=== PATIENT | female | born 1990 | race Caucasian/White ===

== ENCOUNTER 2017-10-20 22:02 | Observation (INO) | payer OTHER, SELFPAY ==
[2017-10-20 21:54] VITALS: BMI 22.8
[2017-10-20] MEDS: Lactated Ringers 1,000 ML 50 ML IV (22:45)
[2017-10-20 23:13] LABS: Hematocrit 38.1 % (37-47); Hemoglobin 13.4 g/dl (12.0-15.0); Mean Corp Hgb Conc 35.2 g/gl (32-36); Mean Corpuscular Hgb 33.7 pg (27.0-32.0); Mean Corpuscular Volume 95.7 fL (81-99); Mean Platelet Vol. 10.7 fl (6.2-12.0); Platelet Count 213 K/mm3 (150-450); RBC Distribution Width CV 13.6 % (11.6-14.6); Red Blood Count 3.98 M/mm3 (4.2-5.4); Scan Indicated on CBC? Y/N NO; White Blood Count 12.5 K/mm3 (4.4-11.0)
[2017-10-20 23:17] LABS: Partial Thromboplast Time 27.2 Seconds (24.1-36.2)
--- NOTE | 2017-10-21 00:09 | PCM.HP.OB ---
(1) labor in second trimester Status: Acute Qualifiers: Fetus number: single or unspecified fetus History Date of Admission: 10/20/17 Gestational age: 19 History of this : 27 year old at 21w3d by LMP, confirmed by 15 week and 19 week U/S, within one day. Presented to office on 10/20/17 with increased vaginal discharge in toilet, no leakage of fluid. No further discharge throughout the day. Then had slight pelvic cramping and round ligament pain but nothing time able or consistent. Lessened after the morning. No vaginal bleeding or contractions. Around 1800 patient stated that pelvic pressure and pain returned and increased about of vaginal discharge that was not stopping, no leakage of fluid. Patient performed her own vaginal exam and noted something in the vagina and that she thought her cervix was dilated. She presented on the unit with her mother. Complaint of continued cramping and wrapping around to her back. Pertinent Past Medical History: History of spontaneous with D&C at 11 weeks Subchorionic hematoma at 15weeks, resolved at 19 weeks Allergies No Known Allergies Allergy (Verified 10/20/17 22:25) Current Medications Acetaminophen (Tylenol) 325 - 650 mg PO Q4H PRN PRN PRN Reason: PAIN OR FEVER >100.4F Al Hydroxide/Mg Hydroxide (Mylanta Ii) 15 - 30 ml PO Q4H PRN PRN PRN Reason: INDIGESTION Citric Acid/Sodium Citrate (Bicitra) 30 ml PO UD PRN Lactated Ringer's () 1,000 mls @ 50 mls/hr IV .Q20H MARIBEL Nalbuphine HCl (Nubain) 5 - 10 mg IV Q3H PRN PRN PRN Reason: PAIN (4-10/10) Ondansetron HCl (Zofran) 4 mg IV Q8H PRN PRN PRN Reason: NAUSEA Promethazine HCl (Phenergan (Ll)) 6.25 - 12.5 mg IV Q4H PRN PRN; Protocol PRN Reason: IF NAUSEA PERSISTS Sodium Chloride () 5 - 15 ml IV UD [facility] Smoking Status: Never smoker Alcohol: None Drug Use: none Number of Fetus(es): 1 Review of Systems Constitutional: Denies: Chills, Fever, Weight Change HEENT: Denies: Head Aches, Sinus Congestion, Sinus Drainage Cardiovascular: Denies: Chest Pain, Palpitations Respiratory: Denies: Cough, Shortness of breath at rest, Sputum production Gastrointestinal: Reports: Abdominal Pain Genitourinary: Denies: Dysuria, Frequency, Hematuria, Urgency Physical Exam Vitals: RPR negative HIV negative Rubella Immune HBsAG negative GC/CT negative O positive, antibody screen negative Anatomy U/S at 19w6d, -1d variation. Anatomy wnl, 3 vessel cord, anterior fundal placenta, cervical length 35.9mm, EFW 53rd%, 326g General: Alert, Oriented x3, No apparent distress Cardiovascular: Regular rate, Regular Rhythm, Normal S1, Normal S2, No murmurs Lungs: Clear to auscultation, No rhonchi, No wheeze Abdomen: Bowel Sounds Present, Soft, Gravid, Tender Extremities:: No edema Presentation: Unable to assess Cervix Dilation (cm): 3 - BBOW in vagina. Performed SSE and able to visualized bag of water in vagina. Station: -3 Assessment/Plan Active and Suspected Problems labor in second trimester (Acute) FHT 140, uterine irritability A:27 year old at 21w3d by LMP in Labor P: 1) Consulted regarding previable premature labor, expectant management at this time. Orders given for admission to L&D. 2) Pain management at patient's request 3) Consulted regarding patient in labor and living previable fetus. She consulte neonatology at [facility]. No further recommendations and no resuscitation efforts after delivery due to gestational age. 4) Reviewed plan of care with patient and , and expectant management at this time. Emotional support provided. Barbi Griffin CNM
[2017-10-21] MEDS: Acetaminophen 325 MG Tablet PO ×2 (00:20→05:51)
--- NOTE | 2017-10-21 08:13 | PCM.PN.OB ---
Patient Problems: Active and Suspected Problems labor in second trimester (Acute) Subjective: Patient rested throughout the night. at bedside. Pelvic cramping remains, patient thought it had worsened but feels now it is about the same. Admits that she has a little burning with urination. Objective: Coping well. - Physical Exam Weight: 129 lb Body Mass Index (BMI) 22.8 Intake and Output for Last 24 Hours 10/19/17 10/20/17 10/21/17 23:59 23:59 23:59 Output Total 400 / 400 Balance -400 / -400 Laboratory Tests Past 24 Hrs 10/20/17 10/20/17 10/20/17 22:48 22:48 22:48 WBC 12.5 H RBC 3.98 L Hgb 13.4 Hct 38.1 MCV 95.7 MCH 33.7 H MCHC 35.2 RDW 13.6 RDW Differential 47.0 H Plt Count 213 MPV 10.7 PT 13.0 INR 1.0 APTT 27.2 Blood Type O POSITIVE Antibody Screen NEGATIVE Assessment/Plan Active and Suspected Problems labor in second trimester (Acute) A: Labor P: 1) Called at 0700 for an update. Updated on patient current condition, pain remains the same and not worsened, and no repeat cervical evaluation. Coming in for evaluation of patient. Co-management of patient continues and then refer for management when arrives.
--- NOTE | 2017-10-21 08:27 | PN.OBGYN_ITS ---
Patient Problems: Active and Suspected Problems labor in second trimester (Acute) Subjective: Patient rested throughout the night. at bedside. Pelvic cramping remains , patient thought it had worsened but feels now it is about the same. Admits that she has a little burning with urination. Objective: Coping well. - Physical Exam Weight: 129 lb Body Mass Index (BMI) 22.8 Intake and Output for Last 24 Hours 10/19/17 10/20/17 10/21/17 23:59 23:59 23:59 Output Total 400 / 400 Balance -400 / -400 Laboratory Tests Past 24 Hrs 10/20/17 10/20/17 10/20/17 22:48 22:48 22:48 WBC 12.5 H RBC 3.98 L Hgb 13.4 Hct 38.1 MCV 95.7 MCH 33.7 H MCHC 35.2 RDW 13.6 RDW Differential 47.0 H Plt Count 213 MPV 10.7 PT 13.0 INR 1.0 APTT 27.2 Blood Type O POSITIVE Antibody Screen NEGATIVE Assessment/Plan Active and Suspected Problems labor in second trimester (Acute) A: Labor P: 1) Called at 0700 for an update. Updated on patient current condition, pain remains the same and not worsened, and no repeat cervical evaluation. Coming in for evaluation of patient. Co-management of patient continues and then refer for management when arrives.
--- NOTE | 2017-10-21 08:42 | PCM.PN.BLA ---
Progress Note S: Patient reports some stable cramps, no VB/LOF O: AF, VS reviewed cvx - 2-3cm/thick/membranes through os noted on SSE & vaginal exam fhts - 140's tocos - irritability A&P: 27yo female with threatened PTL Stable cervical exam from admission Discussed with - will start ampicillin, azithromycin & indocin, plan to transport to [place] for evaluation for possible cerclage Plan of care discussed with patient & family, all questions answered & they agree with plan
[2017-10-21] MEDS: Indomethacin 25 MG Capsule PO (09:23)
--- NOTE | 2017-10-21 10:28 | NURSING ---
Transport team here. Patient is stable upon transport. Left at 1030.
[2017-10-21] MEDS: 0.9% Saline Lock 10 ML Syringe IV (10:47)
== END 2017-10-21 10:30 | disposition other institution (70) ==
LOC: WPOUT 22:03 → WP 10-23 08:38
PROVIDERS: Admitting Provider Obstetrics & Gynecology; Visit Provider Obstetrics & Gynecology
DX: O60.02 Preterm labor without delivery, second trimester (principal); Z3A.21 21 weeks gestation of pregnancy; R30.0 Dysuria
CPT/HCPCS: 59050; 85027; 85610; 85730; 86850; 86900; 99218; J7120; A4216; G0378

== ENCOUNTER 2017-11-18 21:42 | Inpatient (IN) | payer OTHER, SELFPAY ==
[2017-11-18 21:43] VITALS: BP 113/75; PULSE 97; RESP 15; TEMP 36.6; BMI 21.7
--- NOTE | 2017-11-18 22:11 | CT_ITS ---
CT Abdomen And Pelvis W/ Contrast INDICATION: S/P ON 11-01, C/O FEVER AND LOWER ABD PAIN COMPARISON: None TECHNIQUE: Axial CT imaging of the abdomen and pelvis with IV contrast. Coronal and sagittal reformatted images. Radiation dose optimization technique applied. 100 mL of Isovue-300 were given intravenously. FINDINGS: The visualized lung bases are clear. The heart size is normal. The liver, gallbladder, spleen, adrenal glands, and pancreas are unremarkable. The kidneys demonstrate mild hydronephrosis bilaterally. The ureters are prominent in caliber to the level of the pelvis. The urinary bladder is decompressed. The bladder wall is diffusely thickened and there is surrounding fat stranding. Just superiorly to the urinary bladder, there is an air-fluid level with rim enhancement seen between the uterus and the anterior abdominal wall at the level of the section scar, the abscess measures 6.5 cm in transverse dimension, 3 cm in craniocaudal dimension, and 2 cm in thickness. Small air collections are seen within this abscess. A second abscess is seen left posterior lateral to the uterus, to the left of the rectum, this abscess also contains air-fluid and a rim-enhancing wall, diameter of this abscess is 2.2 cm. In the presacral region, suspected area of the rectum, there is a multilobulated heterogenous fluid collection appreciated measuring 7 cm in transverse dimension, 7.5 cm in AP dimension, and 9.7 cm in craniocaudal dimension. The rectum cannot be clearly differentiated from this fluid collection, and is either displaced by wide appears to represent a large abscess, or, this is a markedly abnormal rectum, severely inflamed with very abnormal wall. Osseous structures are grossly unremarkable. CT/Abdomen/Pelvis W IV Cont ONLY IMPRESSION: Status post with a 6.5 x 3 x 2 cm abscess deep to the section scar, between the anterior abdominal wall and the uterus. Second 2.2 cm abscess with air-fluid in the left pelvis, left posterior lateral to the uterus. Large lobulated fluid collection with thick heterogenous wall measuring 7 x 7.5 x 9.7 cm in the pre-sacral region with displacement of the collapsed rectum towards the left. This anatomy could be confirmed with oral or rectal contrast.. Inflammatory changes in multiple abscesses in the pelvis cause mass effect onto the distal ureters with mild bilateral hydroureter and hydronephrosis. at 2327 Reported and signed by: Ewa Almeida MD N.B. : The above information has been verbally conveyed by Ewa Almeida MD to Rosalino King , Referring Physician, on 11/18/2017 23:25:47 (ET). Electronically Signed: Ewa Almeida MD at 22:25 EST Tel , Service support , N.B. : The above information has been verbally conveyed by Ewa Almeida MD to Rosalino King , Referring Physician, on 11/18/2017 23:25:47 (ET).
--- NOTE | 2017-11-18 22:14 | ED.VISSUMM ---
- ER Visit Summary Date of Service: 11/18/17 Chief Complaint: Lower abdominal pain and fever post History of Present Illness: The patient is a 27 F dyspnea past medical history. Was early at [facility] on 11/01/2017 at 23 weeks due to infection. Patient's been on antibiotics and recently came off of Keflex. In the last 1-2 days she developed lower abdominal pain which she has had intermittently since a . And fever as high as 102. She denies any vomiting. No diarrhea no dysuria. No back pain. No vaginal bleeding or significant discharge. Denies any cough, sore throat or chest pain. Physical Examination: Well-appearing young female. Vital signs are stable afebrile. HEENT exam unremarkable. Neck nontender no lymphadenopathy. Lungs clear to auscultation bilaterally. Heart regular rhythm no murmur. Abdomen is soft. She has a well-healing incision. It is dry and clean. No discharge or redness. Her uterus still seems to be somewhat enlarged. She has mild suprapubic tenderness. Normal bowel sounds. No peritoneal signs. Both the right upper and right lower quadrants otherwise were unremarkable. She is moving all 4 extremities. Neurovascular intact. Abdomen nontender without edema or cords. Back exam nontender. Neurologic exam is normal. Test Results: White count elevated at 16,200. H&H 10 and 30. Electrolytes unremarkable normal gap and creatinine. UA has greater than 100 white cells however it is contaminated with 10-25 epithelial cells no nitrates and 3+ bacteria. CT abdomen and pelvis with IV contrast only shows 2 abscesses between the abdominal wall and the uterus. With inflammation of the uterus, bladder and rectum. This is consistent with a postsurgical infection. I did discuss the CAT scan with the radiologist to read it. Emergency Department Course and Treatment: Screening labs will be obtained along with a CT of the abdomen and pelvis with IV contrast only. Treatment Plan: To be started on IV antibiotics. I will speak to the SURGICAL SERVICES ASSISTANT on-call tonight for the [facility]. Disposition: Admission Impression: Fever and lower abdominal pain status post secondary to intra-abdominal/pelvic postop abscesses This note was generated with [employer] dictation software. It may contain incorrect words, spelling, and punctuation that were not noted in review of the chart prior to signing ED Disposition - Plan for ED Patient: Chief Complaint: Abd Pain Referrals: Sivan Valera MD [STAFF PHYSICIAN] -
--- NOTE | 2017-11-18 22:18 | ED.DCSUM_ITS ---
- ER Visit Summary Date of Service: 11/18/17 Chief Complaint: Lower abdominal pain and fever post History of Present Illness: The patient is a 27 F dyspnea past medical history. Was early at [facility] on 11/01/2017 at 23 weeks due to infection. Patient's been on antibiotics and recently came off of Keflex. In the last 1-2 days she developed lower abdominal pain which she has had intermittently since a . And fever as high as 102. She denies any vomiting. No diarrhea no dysuria. No back pain. No vaginal bleeding or significant discharge. Denies any cough, sore throat or chest pain. Physical Examination: Well-appearing young female. Vital signs are stable afebrile. HEENT exam unremarkable. Neck nontender no lymphadenopathy. Lungs clear to auscultation bilaterally. Heart regular rhythm no murmur. Abdomen is soft. She has a well-healing incision. It is dry and clean. No discharge or redness. Her uterus still seems to be somewhat enlarged. She has mild suprapubic tenderness. Normal bowel sounds. No peritoneal signs. Both the right upper and right lower quadrants otherwise were unremarkable. She is moving all 4 extremities. Neurovascular intact. Abdomen nontender without edema or cords. Back exam nontender. Neurologic exam is normal. Test Results: White count elevated at 16,200. H&H 10 and 30. Electrolytes unremarkable normal gap and creatinine. UA has greater than 100 white cells however it is contaminated with 10-25 epithelial cells no nitrates and 3+ bacteria. CT abdomen and pelvis with IV contrast only shows 2 abscesses between the abdominal wall and the uterus. With inflammation of the uterus, bladder and rectum. This is consistent with a postsurgical infection. I did discuss the CAT scan with the radiologist to read it. Emergency Department Course and Treatment: Screening labs will be obtained along with a CT of the abdomen and pelvis with IV contrast only. Treatment Plan: To be started on IV antibiotics. I will speak to the PHYSICIAN RELATIONS SPECIALIST on- call tonight for the [facility]. Disposition: Admission Impression: Fever and lower abdominal pain status post secondary to intra-abdominal/pelvic postop abscesses This note was generated with [employer] dictation software. It may contain incorrect words, spelling, and punctuation that were not noted in review of the chart prior to signing ED Disposition - Plan for ED Patient: Chief Complaint: Abd Pain Referrals: Sivan Valera MD [STAFF PHYSICIAN] -
[2017-11-18] MEDS: 0.9% Normal Saline 1,000 ML 1000 ML IV (22:23)
[2017-11-18 22:28] LABS: Mucous, Urine 0 SEEN /hpf (<or=2+); Red Blood Cells-Urine 0 SEEN /hpf (0-5)
[2017-11-18 22:39] LABS: Absolute Lymphocyte Count 1.79 X10^3/ul (0.83-4.51); Absolute Neutrophil Count 12.6 X10^3/uL (2.0-7.7); Basophil# 0.04 X10^3/uL; Basophil% 0.2 % (0-1); Differential Indicated SCAN CRITERIA MET; Eosinophil# 0.15 X10^3/uL; Eosinophils% 0.9 % (0-5); Hematocrit 30.7 % (37-47); Hemoglobin 10.1 g/dl (12.0-15.0); Lymphocyte # 1.79 X10^3/ul (4.0); Mean Corp Hgb Conc 32.9 g/gl (32-36); Mean Corpuscular Hgb 31.4 pg (27.0-32.0); Mean Corpuscular Volume 95.3 fL (81-99); Mean Platelet Vol. 8.9 fl (6.2-12.0); Monocyte# 1.55 X10^3/uL; Monocyte% 9.6 % (0-10); Neutrophil # 12.58 X10^3/uL (2.7-7.7); Neutrophil % 77.7 % (47-70); POSITIVE COUNT NO; POSITIVE DIFFERENTIAL YES; POSITIVE MORPHOLOGY NO; Platelet Count 476 K/mm3 (150-450); RBC Distribution Width CV 13.2 % (11.6-14.6); RBC Distribution Width SD 46.1 fl (35.1-43.9); Red Blood Count 3.22 M/mm3 (4.2-5.4); White Blood Count 16.2 K/mm3 (4.4-11.0)
[2017-11-18 22:42] LABS: Anion Gap 9 (5-15); BUN 14 mg/dL (7-18); BUN/Creat Ratio 31.2 RATIO (10-20); Calcium,Total 8.3 mg/dL (8.5-10.1); Chloride 106 mmol/L (98-107); Color, Urine Yellow (Yellow); Creatinine, Serum 0.45 mg/dL (0.55-1.02); EST Glomerular Filtration Rate 175 mL/min (>60); Est Glom Filt Rate - Afr Amer 212 mL/min (>60); Estimated Creatinine Clearance 152.59 ml/min; Glucose 93 mg/dL (74-106); Glucose, Dipstick Normal (Normal); Ketone-Dipstick 15 mg/dl (Negative); Leukocyte Esterase-Dipstick 500 /ul (Negative); Nitrite-Dipstick Negative (Negative); Occult Blood-Urine 250 /ul (Negative); Potassium 3.4 mmol/L (3.5-5.1); Protein-Dipstick 30 mg/dl (Negative); Sodium Level 140 mmol/L (136-145); Specific Gravity, Urine 1.015 (1.002-1.030); Urine Bilirubin Dipstick Negative (Negative); Urine Clarity Cloudy (Clear); Urine Urobilinogen Normal (Normal)
[2017-11-18 22:54] LABS: White Blood Cells >100 SEEN /hpf (0-5)
[2017-11-18 22:55] LABS: Squamous Epithelial Cells - UA 10-25 SEEN /hpf (5-10)
[2017-11-18 22:56] LABS: Bacteria 3+ /hpf (None Seen)
[2017-11-18] MEDS: Ketorolac 30 MG/ML Syringe IV (23:08)
[2017-11-18 23:11] LABS: Anisocytosis RARE; Macrocytosis RARE; Platelet Estimate SLT INC (ADEQ)
[2017-11-19 00:49] VITALS: BP 118/80; PULSE 94; PULSE 98; RESP 16; TEMP 37.1; O2SAT 98; O2SAT 99
[2017-11-19 01:25] VITALS: RESP 15; O2SAT 97; BMI 21.7
[2017-11-19] MEDS: oxyCODONE 5 MG Tablet PO (03:04)
[2017-11-19] MEDS: 0.9% Normal Saline 1,000 ML 75 ML IV (03:07)
[2017-11-19] MEDS: Piperacil/Tazobactam 3.375 GM/50 ML ML IV (06:22)
[2017-11-19 06:54] LABS: Absolute Lymphocyte Count 1.68 X10^3/ul (0.83-4.51); Absolute Neutrophil Count 12.4 X10^3/uL (2.0-7.7); Basophil# 0.03 X10^3/uL; Basophil% 0.2 % (0-1); Eosinophil# 0.15 X10^3/uL; Hematocrit 27.6 % (37-47); Lymphocyte # 1.68 X10^3/ul (4.0); Lymphocyte % 10.8 % (19-41); Mean Corp Hgb Conc 32.6 g/gl (32-36); Mean Corpuscular Hgb 31.1 pg (27.0-32.0); Mean Corpuscular Volume 95.5 fL (81-99); Mean Platelet Vol. 8.7 fl (6.2-12.0); Monocyte# 1.26 X10^3/uL; Monocyte% 8.1 % (0-10); Neutrophil # 12.35 X10^3/uL (2.7-7.7); Neutrophil % 79.4 % (47-70); Platelet Count 404 K/mm3 (150-450); RBC Distribution Width CV 13.2 % (11.6-14.6); RBC Distribution Width SD 46.2 fl (35.1-43.9); Red Blood Count 2.89 M/mm3 (4.2-5.4); White Blood Count 15.6 K/mm3 (4.4-11.0)
[2017-11-19 06:55] LABS: POSITIVE COUNT NO; POSITIVE DIFFERENTIAL NO; POSITIVE MORPHOLOGY NO
[2017-11-19 07:04] LABS: Anion Gap 9 (5-15); BUN 10 mg/dL (7-18); BUN/Creat Ratio 26.4 RATIO (10-20); Calcium,Total 7.5 mg/dL (8.5-10.1); Chloride 106 mmol/L (98-107); Creatinine, Serum 0.38 mg/dL (0.55-1.02); EST Glomerular Filtration Rate 213 mL/min (>60); Est Glom Filt Rate - Afr Amer 258 mL/min (>60); Glucose 85 mg/dL (74-106); Potassium 3.2 mmol/L (3.5-5.1); Sodium Level 139 mmol/L (136-145)
[2017-11-19] MEDS: Ibuprofen 400 MG Tablet 800 MG PO (08:34)
[2017-11-19 09:00] VITALS: BP 124/76; PULSE 100; RESP 20; TEMP 36.6; O2SAT 100
--- NOTE | 2017-11-19 10:00 | PCM.HP.BLA ---
Problem List (1) Intra-abdominal abscess post-procedure Status: Acute Qualifiers: Encounter type: initial encounter Qualified Code(s): T81.4XXA - Infection following a procedure, initial encounter; K65.1 - Peritoneal abscess History and Physical Date of Admission: 11/19/17 27yo that had primary c/s at [facility] on 11/01/17 for labor breech presentation at approximately 24 weeks gestation. pt reports since that time has had pain and intermittent fevers. pt reports that this week on 11/16/17 her fever and pain got worse- but yesterday evening 11/18/17 spiked to 102F and pain was more severe she could hardly walk. pt came to [facility] ER had CT done which showed multiple intraabdominal pelvic abscess, largest 9.7cm. pt was started on Zosyn. pt reports today her pain is worse on Left side but at this time has no other concerns. pt was counseled about need for drainage of abscess- pt would like to be transported to [facility] if possible for further treatment. OBHX: C/S x 1 (approx 24 weeks), missed ab PRODUCTION ESTIMATOR: Denies PMH: denies MEDS: Motrin, Tylenol, Zosyn (current hospitalization) All: NKDA SXHX: C/s and D&C Sochx: denies x 3 Exam: VS:118/80, 98.8F, 94 Gen: white female in NAD Abd: c/s incision dry and intact. Abdomen, soft- warm to touch, tender to light palpation L>R Study: Abdomen/Pelvis W IV Cont ONLY Date of Exam: 11/18/17 Exam# [id number] Ordering Dr: Rosalino King MD CT Abdomen And Pelvis W/ Contrast INDICATION: S/P ON 11-01, C/O FEVER AND LOWER ABD PAIN COMPARISON: None TECHNIQUE: Axial CT imaging of the abdomen and pelvis with IV contrast. Coronal and sagittal reformatted images. Radiation dose optimization technique applied. 100 mL of Isovue-300 were given intravenously. FINDINGS: The visualized lung bases are clear. The heart size is normal. The liver, gallbladder, spleen, adrenal glands, and pancreas are unremarkable. The kidneys demonstrate mild hydronephrosis bilaterally. The ureters are prominent in caliber to the level of the pelvis. The urinary bladder is decompressed. The bladder wall is diffusely thickened and there is surrounding fat stranding. Just superiorly to the urinary bladder, there is an air-fluid level with rim enhancement seen between the uterus and the anterior abdominal wall at the level of the section scar, the abscess measures 6.5 cm in transverse dimension, 3 cm in craniocaudal dimension, and 2 cm in thickness. Small air collections are seen within this abscess. A second abscess is seen left posterior lateral to the uterus, to the left of the rectum, this abscess also contains air-fluid and a rim-enhancing wall, diameter of this abscess is 2.2 cm. In the presacral region, suspected area of the rectum, there is a multilobulated heterogenous fluid collection appreciated measuring 7 cm in transverse dimension, 7.5 cm in AP dimension, and 9.7 cm in craniocaudal dimension. The rectum cannot be clearly differentiated from this fluid collection, and is either displaced by wide appears to represent a large abscess, or, this is a markedly abnormal rectum, severely inflamed with very abnormal wall. Osseous structures are grossly unremarkable. CT/Abdomen/Pelvis W IV Cont ONLY IMPRESSION: Status post with a 6.5 x 3 x 2 cm abscess deep to the section scar, between the anterior abdominal wall and the uterus. Second 2.2 cm abscess with air-fluid in the left pelvis, left posterior lateral to the uterus. Large lobulated fluid collection with thick heterogenous wall measuring 7 x 7.5 x 9.7 cm in the pre-sacral region with displacement of the collapsed rectum towards the left. This anatomy could be confirmed with oral or rectal contrast.. Inflammatory changes in multiple abscesses in the pelvis cause mass effect onto the distal ureters with mild bilateral hydroureter and hydronephrosis. Electronically Signed by Ewa Almeida MD HD#0 admitted for POST OPERATIVE INTRAABDOMINAL ABSCESS 1) continue Zosyn 2) Pain mgmt 3) Monitor labs- most recent WBC 15.6/79.4 4) Reviewed with patient transport to [place] or other [facility] facility vs staying at [facility]- IR not available until 11/20/17. Pt would like to be transported back to [facility] facility as her son is in NICU at [place]. Pt is also [place] - employee of [employer]. 5) Transport line called- waiting return call with accepting PRODUCTION ESTIMATOR provider 6) NPO at this time
--- NOTE | 2017-11-19 10:11 | HP.PCM_ITS ---
Problem List (1) Intra-abdominal abscess post-procedure Status: Acute Qualifiers: Encounter type: initial encounter Qualified Code(s): T81.4XXA - Infection following a procedure, initial encounter; K65.1 - Peritoneal abscess History and Physical Date of Admission: 11/19/17 27yo that had primary c/s at [facility] on 11/01/17 for labor breech presentation at approximately 24 weeks gestation. pt reports since that time has had pain and intermittent fevers. pt reports that this week on 11/16/17 her fever and pain got worse- but yesterday evening 11/18/17 spiked to 102F and pain was more severe she could hardly walk. pt came to [facility] ER had CT done which showed multiple intraabdominal pelvic abscess, largest 9.7cm. pt was started on Zosyn. pt reports today her pain is worse on Left side but at this time has no other concerns. pt was counseled about need for drainage of abscess- pt would like to be transported to [facility] [place] if possible for further treatment. OBHX: C/S x 1 (approx 24 weeks), missed ab METAL CABINET FINISHER: Denies PMH: denies MEDS: Motrin, Tylenol, Zosyn (current hospitalization) All: NKDA SXHX: C/s and D&C Sochx: denies x 3 Exam: VS:118/80, 98.8F, 94 Gen: white female in NAD Abd: c/s incision dry and intact. Abdomen, soft- warm to touch, tender to light palpation L>R Study: Abdomen/Pelvis W IV Cont ONLY Date of Exam: 11/18/17 Exam# [id number] Ordering Dr: Rosalino King MD CT Abdomen And Pelvis W/ Contrast INDICATION: S/P ON 11-01, C/O FEVER AND LOWER ABD PAIN COMPARISON: None TECHNIQUE: Axial CT imaging of the abdomen and pelvis with IV contrast. Coronal and sagittal reformatted images. Radiation dose optimization technique applied. 100 mL of Isovue-300 were given intravenously. FINDINGS: The visualized lung bases are clear. The heart size is normal. The liver, gallbladder, spleen, adrenal glands, and pancreas are unremarkable. The kidneys demonstrate mild hydronephrosis bilaterally. The ureters are prominent in caliber to the level of the pelvis. The urinary bladder is decompressed. The bladder wall is diffusely thickened and there is surrounding fat stranding. Just superiorly to the urinary bladder, there is an air-fluid level with rim enhancement seen between the uterus and the anterior abdominal wall at the level of the section scar, the abscess measures 6.5 cm in transverse dimension, 3 cm in craniocaudal dimension, and 2 cm in thickness. Small air collections are seen within this abscess. A second abscess is seen left posterior lateral to the uterus, to the left of the rectum, this abscess also contains air-fluid and a rim-enhancing wall, diameter of this abscess is 2.2 cm. In the presacral region, suspected area of the rectum, there is a multilobulated heterogenous fluid collection appreciated measuring 7 cm in transverse dimension, 7.5 cm in AP dimension, and 9.7 cm in craniocaudal dimension. The rectum cannot be clearly differentiated from this fluid collection, and is either displaced by wide appears to represent a large abscess, or, this is a markedly abnormal rectum, severely inflamed with very abnormal wall. Osseous structures are grossly unremarkable. CT/Abdomen/Pelvis W IV Cont ONLY IMPRESSION: Status post with a 6.5 x 3 x 2 cm abscess deep to the section scar, between the anterior abdominal wall and the uterus. Second 2.2 cm abscess with air-fluid in the left pelvis, left posterior lateral to the uterus. Large lobulated fluid collection with thick heterogenous wall measuring 7 x 7.5 x 9.7 cm in the pre-sacral region with displacement of the collapsed rectum towards the left. This anatomy could be confirmed with oral or rectal contrast.. Inflammatory changes in multiple abscesses in the pelvis cause mass effect onto the distal ureters with mild bilateral hydroureter and hydronephrosis. Electronically Signed by Ewa Almeida MD HD#0 admitted for POST OPERATIVE INTRAABDOMINAL ABSCESS 1) continue Zosyn 2) Pain mgmt 3) Monitor labs- most recent WBC 15.6/79.4 4) Reviewed with patient transport to [place] or other [facility] facility vs staying at [facility]- IR not available until 11/20/17. Pt would like to be transported back to [facility] facility as her son is in NICU at [place]. Pt is also [place] - employee of [employer]. 5) Transport line called- waiting return call with accepting METAL CABINET FINISHER provider 6) NPO at this time
--- NOTE | 2017-11-19 11:18 | NURSING ---
1000 Dr Infante into see pt. informed pt of possible transfer to [place]. pt made NPO. Mai Maguire RN
--- NOTE | 2017-11-19 11:20 | NURSING ---
1100 Dr Infante called and informed nurse,pt will be transferred to [place]. Mai Maguire RN
--- NOTE | 2017-11-19 11:43 | NURSING ---
1145 report called to [facility], will contact transport to transfer annalee Maguire RN
--- NOTE | 2017-11-19 11:54 | NURSING ---
1155 Pt informed of transfer to [place]. waiting for transport to transfer pt Mai Maguire RN
[2017-11-19] MEDS: Acetaminophen 500 MG Tablet 1000 MG PO (12:00)
[2017-11-19 12:35] VITALS: BP 112/76; PULSE 100; RESP 20; TEMP 37.2; O2SAT 100
--- NOTE | 2017-11-19 13:03 | NURSING ---
[id number] transport here to take pt to [place], report given to transport team. pt has voided and pain controlled. IV intact, to gravity drip. Mai Maguire RN
[2017-11-20 16:07] LABS: Pathologist Review Reviewed
== END 2017-11-19 13:10 | disposition other institution (70) | DRG 776 ==
LOC: ED 22:59 → MS3 11-19 00:35
PROVIDERS: Admitting Provider Obstetrics & Gynecology; Emergency Provider Emergency Medicine; Visit Provider Obstetrics & Gynecology
DX: O85 Puerperal sepsis (principal)
CPT/HCPCS: 36415; 74177; 80048; 81001; 85025; 87040; 99285; J7030; Q9967; A4216

== ENCOUNTER 2020-04-21 09:33 | Inpatient (IN) | payer OTHER, SELFPAY ==
--- NOTE | 2020-04-15 11:54 | HP.PCM_ITS ---
History and Physical Date of Admission: 04/21/20 HPI: The patient is a 29 year old female presenting for pre-operative visit. She is scheduled for?, for?previous classical c/s on?04/21/2020. ??Procedure discussed along with risks, benefits and complications. ?Other alternatives discussed for management. Consent form signed??Yes.? PAST MEDICAL HISTORY PAST MEDICAL HISTORY Diagnosis Date ? Abnormal Pap smear of cervix ? ? Anemia ? ? History of blood transfusion ? ? 2 units after pelvic abcess 10/2017 ? Migraine ? ? Migraine without aura and without status migrainosus, not intractable 08/28/2018 ? Polycystic ovaries ? ? pelvic abscess 11/21/2017 ? Per ID-- continue home abx until repeat imaging shows resolution of abscesses. ? Uterine polyp ? ? Uterus: normal cavity except polyp or myoma in lower segment- see 04/29/2019 dr Leslie note ? ? PAST SURGICAL HISTORY PAST SURGICAL HISTORY Procedure Laterality Date ? DELIVERY ONLY ? 11/01/2017 ? classical c/s for prematurity and breech ? D&C (INCOMPLETE AB), ANY TRIMESTER ? 2015 ? [facility] ? ? ? PICC LINE INSERT/CONSULT ? 11/22/2017 ? ? ? VAGINOSCOPY ? CURRENT MEDICATIONS Current Outpatient Medications Medication Sig Dispense Refill ? Lxhdntus-Fv-Tlw-Fe-FA ( VITAMIN) tab Take 1 tablet by mouth once daily. 90 tablet 3 ? HYDROXYprogesterone caproate (BRUCE) 250 mg/mL injection Inject 1 mL intramuscularly one time a week for 21 doses. Calling into [facility]. 21 mL 5 ? acetaminophen (TYLENOL EXTRA STRENGTH) 500 mg tablet Take 500-1,000 mg by mouth every 8 hours as needed for Pain. ? ? ? No current facility-administered medications for this visit.? ? ALLERGIES:?Patient has no known allergies. ? PERSONAL HISTORY:? SOCIAL HISTORY Social History ? Tobacco Use ? Smoking status: Never Smoker ? Smokeless tobacco: Never Used Substance Use Topics ? Alcohol use: Not Currently ? Drug use: No ? FAMILY HISTORY:? FAMILY HISTORY FAMILY HISTORY Problem Relation Age of Onset ? No Known Problems Mother ? ? Hyperlipidemia Father ? ? Hypertension Father ? ? Prostate Cancer Father ? ? Depression Father ? ? Insomnia Father ? ? No Known Problems Brother ? ? Breast Cancer Maternal Grandmother ? ? Heart Maternal Grandfather ?bypass ? Coronary Artery Disease Maternal Grandfather ? ? Heart Paternal Grandmother ? ? Heart Attack Other ? ? REVIEW OF SYMPTOMS: GENERAL: denies fevers or chills ENDOCRINOLOGY: has not been on steroids Cardiology : denies palpitations or chest pain Respiratory: denies SOB or cough Hematology: denies history of prolonged bleeding or easy bruising or VTE Allergy: Denies history of personal or family history of allergy to anesthesia ? ? PHYSICAL EXAMINATION: ? VITALS:?Last menstrual period 08/07/2019, currently . ? GENERAL:??The patient is well nourished, well hydrated in no acute distress. ?, The patient is oriented to time, place, and person. NECK:?Supple. No lynphadenopathy, normal thyroid, no thyromegaly. LUNGS:?Clear to auscultation bilaterally. no wheezes, rhonchi or rales HEART:?Regular rate and rhythm, Normal heart sounds and No murmurs or gallops GENITALIA:?Normal external genitalia, Urethral meatus normal, Bladder nontender, normal vagina and normal vaginal tone, normal cervix, normal uterus, size and consistency, normal adnexa without masses or tenderness and perineum WNL ? ? IMPRESSION:?29 YOF w/?Estimated Date of Delivery: 05/13/20 w/ h/o classical c/s for repeat c/s ? PLAN:???The risks/benefits/alternatives and personal involved for the planned?c- section?were reviewed with the patient. Her questions were answered to her satisfaction and she desires to proceed. ?Consent was signed. ?I reviewed with her postop instructions and expectations. ? ? I have reviewed and updated past medical and surgical history, medications and allergies?
[2020-04-21] VITALS (19 sets, daily range): BP systolic 95–121; BP diastolic 53–78; PULSE 60–81; RESP 12–16; TEMP 35.7–37.1; O2SAT 94–100; BMI 27.3
[2020-04-21] MEDS: Lactated Ringers 1,000 ML 999 ML IV (10:05)
[2020-04-21 10:19] LABS: Absolute Lymphocyte Count 1.53 X10^3/uL (0.83-4.51); Absolute Neutrophil Count 8.6 X10^3/uL (2.0-7.7); Basophil# 0.06 X10^3/uL; Basophil% 0.5 % (0-1); Eosinophil# 0.16 X10^3/uL; Eosinophils% 1.4 % (0-5); Hematocrit 37.6 % (37-47); Hemoglobin 13.4 g/dL (12.0-15.0); Lymphocyte # 1.53 X10^3/ul (4.0); Lymphocyte % 13.6 % (19-41); Mean Corp Hgb Conc 35.6 g/dL (32-36); Mean Corpuscular Hgb 34.4 pg (27.0-32.0); Mean Corpuscular Volume 96.7 fL (81-99); Mean Platelet Vol. 10.9 fl (6.2-12.0); Monocyte# 0.81 X10^3/uL; Monocyte% 7.2 % (0-10); NRBC Flagged by Analyzer 0 % (0-5); Neutrophil # 8.59 X10^3/uL (2.7-7.7); Neutrophil % 76.5 % (47-70); Platelet Count 161 K/mm3 (150-450); RBC Distribution Width CV 13.1 % (11.6-14.6); RBC Distribution Width SD 45.1 fl (35.1-43.9); Red Blood Count 3.89 M/mm3 (4.2-5.4); White Blood Count 11.2 K/mm3 (4.4-11.0)
[2020-04-21] MEDS: Lactated Ringers 1,000 ML 150 ML IV (11:17)
[2020-04-21] MEDS: Acetaminophen 500 MG Tablet 1000 MG PO ×3 (11:18→22:13)
[2020-04-21] MEDS: Sodium Citrate/Citric Acid 30 ML UDC PO (11:45)
[2020-04-21] MEDS: Cefazolin 2 GM in 0.9% Normal Saline 100 ML IV (12:01)
[2020-04-21] MEDS: Oxytocin 30 units/NS 500 ml 30 UNITS/500 ML IV.SOLN 167 UNITS IV (12:28)
--- NOTE | 2020-04-21 13:02 | OP.PCM_ITS ---
Delivery Classification: Scheduled Final MIMA: 05/13/20 Final MIMA Source: US <20 weeks Gestational age: 36 Weeks and 6 Days display coordinator: Aida Aquino Type of Anesthesia:: Spinal Special Medications: none Implants Used: none Date of Procedure: 04/21/20 Pre-Operative Diagnosis: previous classical c/s, 36 6/7 weeks Post-Operative Diagnosis: same Indications for : Repeat Elective Description of Procedure: The patient was taken to the operating room. She was prepped and draped in the dorsal supine position with a leftward tilt. A Pfannenstiel skin incision was made approximately 2 cm above the symphysis pubis and carried through to underlying layer fascia with the scalpel. The fascia was incised incised in the midline and extended laterally with the Hankins scissors. The fascia was dissected off the rectus muscles with blunt and sharp dissection. The rectus muscles were in the midline and the peritoneum was entered bluntly. The peritoneal incision was stretched and the bladder blade was placed. The uterine incision was made in a low transverse fashion with the scalpel and extended superiorly and inferiorly with blunt dissection. The amniotic membranes were ruptured bluntly and clear amniotic fluid returned. The infant's head was brought to the incision in the flexed position and delivered without difficulty. The remainder of the infant was delivered with gentle traction and fundal pressure in the standard fashion. The mouth and nares were bulb suctioned. The cord was clamped and cut as the infant was stimulated. Cord clamping was delayed. The was handed off to the waiting nursing staff. Of note there were no significant intraperitoneal adhesions. The uterus was well-healed there is no detectable defect. It was virtually impossible to tell that she had had a previous classical section. The lower uterine segment and uterine fundus were normal in appearance with normal myometrial thickness. The placenta was delivered with fundal massage and gentle traction in the standard fashion. The uterus was exteriorized and cleared of all clots and debris. The cervix was dilated with a ring forcep. The uterine incision was closed with #1 Vicryl in a running locked fashion. A second layer of the same suture was used in an imbricating fashion. The incision was examined and was found to be hemostatic. The uterus was placed back into the peritoneal cavity and hemostasis was again confirmed. The rectus muscles were examined and any bleeding was Bovie cauterized. The parietal peritoneum and rectus muscles were closed en bloc with an 0 Vicryl running suture. The surgical teams outer gloves were then changed. The rectus fascia was examined and any bleeding was Bovie cauterized and the rectus fascia was closed with 1 Vicryl suture in a running standard fashion. The subcutaneous tissue was examining and any bleeding was Bovie cauterized. The skin was closed in a subcuticular fashion. I performed the entire procedure with assistance. All sponge, lap, and needle counts were correct. The patient was taken to her room for recovery in a stable condition. Amniotic Membrane Rupture Type: Artificial Amniotic Fluid Description: Clear Placenta Disposition: [facility] Specimen(s) sent to pathology: none Drain: Mitchell to straight drain Fluids Replaced: 1000cc Cord Entanglement: None Cord Vessel Description: 3 Vessels Esitmated Blood Loss (ml): 800 Infant Gender: Female Antibiotic Given: Ancef 2 grams IV x1 - Admit VTE Documentation VTE Present on Admission: No VTE Mechan Device Prophylaxis: SCD's VTE Pharm Prophylaxis ordered?: No Reason prophylaxis not ordered:: Procedure Not Indicated
[2020-04-21] MEDS: Ondansetron 4 MG/2 ML Vial IV ×2 (13:47→17:45)
[2020-04-21] MEDS: Lactated Ringers 1,000 ML 100 ML IV (16:20)
[2020-04-21] MEDS: Ketorolac 30 MG/ML Syringe IV (17:45)
[2020-04-22] MEDS: Ketorolac 30 MG/ML Syringe IV ×3 (00:03→13:39)
[2020-04-22 00:15] VITALS: BP 112/65; PULSE 72; RESP 16; TEMP 37.2; O2SAT 100
[2020-04-22] MEDS: Lactated Ringers 1,000 ML 100 ML IV (02:04)
[2020-04-22] MEDS: Acetaminophen 500 MG Tablet 1000 MG PO ×3 (04:00→18:00)
[2020-04-22 04:29] VITALS: BP 107/58; PULSE 68; RESP 16; TEMP 37
--- NOTE | 2020-04-22 04:55 | NURSING ---
up to bathroom unable to void back to bed and going to increase po intake.
[2020-04-22 05:01] LABS: Hematocrit 34.8 % (37-47); Hemoglobin 12.1 g/dL (12.0-15.0); Mean Corp Hgb Conc 34.8 g/dL (32-36); Mean Corpuscular Hgb 33.9 pg (27.0-32.0); Mean Corpuscular Volume 97.5 fL (81-99); Mean Platelet Vol. 10.7 fl (6.2-12.0); Platelet Count 180 K/mm3 (150-450); RBC Distribution Width CV 13.1 % (11.6-14.6); RBC Distribution Width SD 46.3 fl (35.1-43.9); Red Blood Count 3.57 M/mm3 (4.2-5.4); White Blood Count 17.2 K/mm3 (4.4-11.0)
[2020-04-22] MEDS: 0.9% Saline Lock 10 ML Syringe IV ×2 (06:40→13:39)
--- NOTE | 2020-04-22 08:16 | PN.OBGYN_ITS ---
Subjective: Pain well controlled. Average lochia. Some nausea yesterday and lightheadedness but doing better this morning. Has been able to ambulate and urinate. - Physical Exam Vitals/I&O's: Vital Signs Temp Pulse Resp BP Pulse Ox 98.6 F 68 16 107/58 L 100 04/22/20 04:29 04/22/20 04:29 04/22/20 04:29 04/22/20 04:04/22/20 00:15 Oxygen Delivery Method Room Air Weight: 69.853 kg Body Mass Index (BMI) 27.3 Intake and Output for Last 24 Hours 04/20/20 04/21/20 04/22/20 23:59 23:59 23:59 Intake Total 1817.5 / 1817.5 2556.66 / 2556.66 Output Total 300 / 300 1150 / 1150 Balance 1517.5 / 1517.5 1406.66 / 1406.66 General: Alert, Cooperative, No apparent distress Abdomen: Soft, Distended - mildly, softly, Tender - mildly, appropriate Extremities: Edema - trace Skin: Incision - bandage w/ some Laboratory Results 04/21/20 10:05: WBC 11.2 H, RBC 3.89 L, Hgb 13.4, Hct 37.6, MCV 96.7, MCH 34.4 H , MCHC 35.6, RDW Std Deviation 45.1 H, RDW Coeff of Milly 13.1, Plt Count 161, MPV 10.9, Immature Gran % (Auto) 0.800, Neut % (Auto) 76.5 H, Lymph % (Auto) 13.6 L, Pondera % (Auto) 7.2, Eos % (Auto) 1.4, Baso % (Auto) 0.5, Absolute Neuts (auto) 8.6 H, Absolute Lymphs (auto) 1.53, Nucleated RBC % 0 04/21/20 10:05: Blood Type O POSITIVE, Antibody Screen NEGATIVE 04/22/20 04:50: WBC 17.2 H, RBC 3.57 L, Hgb 12.1, Hct 34.8 L, MCV 97.5, MCH 33.9 H, MCHC 34.8, RDW Std Deviation 46.3 H, RDW Coeff of Milly 13.1, Plt Count 180, MPV 10.7 Current Medications Acetaminophen (Tylenol) 1,000 mg PO Q6H [facility] Last Admin: 04/22/20 04:00 Dose: 1,000 mg Documented by: Bisacodyl (Dulcolax) 10 mg RECTAL UD PRN PRN Reason: If no BM Diphenhydramine HCl (Benadryl) 25 mg PO Q6H PRN PRN PRN Reason: ITCHING Stop: 04/22/20 13:37 Hydrocortisone (Hytone) 1 applic TOPICAL TID PRN PRN; Protocol PRN Reason: Discomfort Naloxone HCl 4 mg/ Dextrose 504 mls @ 0 mls/hr IV .Q0M PRN; Protocol PRN Reason: Respiratory depression Ketorolac Tromethamine (Toradol (Bkc)) 30 mg IV Q6H [facility] Stop: 04/22/20 13:01 Last Admin: 04/22/20 06:29 Dose: 30 mg Documented by: Methylergonovine Maleate (Methergine) 0.2 mg IM X1 PRN PRN Reason: Uterine Atony Nalbuphine HCl (Nubain) 5 mg IV Q3H PRN PRN PRN Reason: ITCHING Stop: 04/22/20 13:37 Naloxone HCl (Narcan) 0.02 mg IV Q1M PRN PRN Reason: RR <10 and pt unresponsive Naproxen (Naprosyn) 500 mg PO Q8 [facility] Ondansetron HCl (Zofran) 4 mg IV Q4H PRN PRN PRN Reason: Nausea Last Admin: 04/21/20 17:45 Dose: 4 mg Documented by: Oxycodone HCl (Oxyir) 5 - 10 mg PO Q4H PRN PRN PRN Reason: Pain Score 4-10/10 Prochlorperazine Edisylate (Compazine Iv) 10 mg IV Q6H PRN PRN PRN Reason: NAUSEA Senna/Docusate Sodium (Senokot-S, Amina-Colace) 0 tablet PO DAILY [facility] Simethicone (Mylicon) 80 mg PO PCHS PRN PRN Reason: Indigestion/stomach pain Sodium Chloride () 5 - 15 ml IV UD PRN PRN Reason: SALINE FLUSH Last Admin: 04/22/20 06:40 Dose: 10 ml Documented by: Medical Necessity - Tobacco Use Smoking Status: Never smoker Assessment/Plan All Active Problems Intra-abdominal abscess post-procedure (Acute) labor in second trimester (Acute) POD#1 s/p repeat c/s doing well infant and doing well routine care
[2020-04-22 09:00] VITALS: BP 105/66; PULSE 75; RESP 16; TEMP 36.2
[2020-04-22] MEDS: Senna/Docusate Sodium 1 Tablet PO (10:27)
[2020-04-22 13:45] VITALS: BP 115/73; PULSE 70; RESP 16; TEMP 36.3
--- NOTE | 2020-04-22 18:30 | NURSING ---
1800- short white mepilex dressing changed per Dr. Valera's request for moderate amt dark red drainage. Incision with edges well approximated, ecchymosis noted to top and bottom of incision. No active drainage noted. Tolerated well
[2020-04-22 20:25] VITALS: BP 124/67; PULSE 71; RESP 18; TEMP 36.6
[2020-04-22] MEDS: Naproxen 250 MG Tablet 500 MG PO (21:24)
[2020-04-23] MEDS: Acetaminophen 500 MG Tablet 1000 MG PO ×2 (00:34→06:38)
[2020-04-23 01:45] VITALS: BP 114/63; PULSE 64; RESP 18; TEMP 37
[2020-04-23] MEDS: Naproxen 250 MG Tablet 500 MG PO (05:03)
--- NOTE | 2020-04-23 07:45 | PN.OBGYN_ITS ---
Subjective: Pain well controlled. Average lochia. No nausea or vomiting. Ambulating without difficulty. Would like to be discharged home today. - Physical Exam Vitals/I&O's: Vital Signs Temp Pulse Resp BP Pulse Ox 98.6 F 64 18 114/63 100 04/23/20 01:45 04/23/20 01:45 04/23/20 01:45 04/23/20 01:45 04/22/20 00:15 Oxygen Delivery Method Room Air Weight: 69.853 kg Body Mass Index (BMI) 27.3 Intake and Output for Last 24 Hours 04/21/20 04/22/20 04/23/20 23:59 23:59 23:59 Intake Total 1817.5 / 1817.5 2556.66 / 2556.66 Output Total 300 / 300 1550 / 1550 Balance 1517.5 / 1517.5 1006.66 / 1006.66 General: Alert, Cooperative, No apparent distress Abdomen: Soft, Distended - Mildly, softly, Tender - Appropriately Extremities: Edema - 1+, - - Her bandage is clean dry and intact Current Medications Acetaminophen (Tylenol) 1,000 mg PO Q6H [facility] Last Admin: 04/23/20 06:38 Dose: 1,000 mg Documented by: Bisacodyl (Dulcolax) 10 mg RECTAL UD PRN PRN Reason: If no BM Hydrocortisone (Hytone) 1 applic TOPICAL TID PRN PRN; Protocol PRN Reason: Discomfort Naloxone HCl 4 mg/ Dextrose 504 mls @ 0 mls/hr IV .Q0M PRN; Protocol PRN Reason: Respiratory depression Methylergonovine Maleate (Methergine) 0.2 mg IM X1 PRN PRN Reason: Uterine Atony Naloxone HCl (Narcan) 0.02 mg IV Q1M PRN PRN Reason: RR <10 and pt unresponsive Naproxen (Naprosyn) 500 mg PO Q8 [facility] Last Admin: 04/23/20 05:03 Dose: 500 mg Documented by: Ondansetron HCl (Zofran) 4 mg IV Q4H PRN PRN PRN Reason: Nausea Last Admin: 04/21/20 17:45 Dose: 4 mg Documented by: Oxycodone HCl (Oxyir) 5 - 10 mg PO Q4H PRN PRN PRN Reason: Pain Score 4-10/10 Prochlorperazine Edisylate (Compazine Iv) 10 mg IV Q6H PRN PRN PRN Reason: NAUSEA Senna/Docusate Sodium (Senokot-S, Amina-Colace) 0 tablet PO DAILY [facility] Last Admin: 04/22/20 10:27 Dose: 1 tablet Documented by: Simethicone (Mylicon) 80 mg PO PCHS PRN PRN Reason: Indigestion/stomach pain Sodium Chloride () 5 - 15 ml IV UD PRN PRN Reason: SALINE FLUSH Last Admin: 04/22/20 13:39 Dose: 10 ml Documented by: Medical Necessity - Tobacco Use Smoking Status: Never smoker Assessment/Plan All Active Problems Intra-abdominal abscess post-procedure (Acute) labor in second trimester (Acute) Postoperative day #2 status post repeat section. Patient is doing well. is breast-feeding and doing well. Both are ready to be discharged home today. Routine instructions and prescriptions.
--- NOTE | 2020-04-23 07:48 | DCINST_ITS ---
Discharge Diet: No Restrictions Discharge Activity: Return to Normal Activity, May Not Drive - for 2 weeks, May not drive while taking narcotic pain medications., May Shower, May Take a Tub Bath - in 7 days. May resume sexual activity in: 4-6 weeks Lifting Restrictions: 20 pounds Additional Activity Instructions:: Nothing in the vagina for 4-6 weeks. You may return to work/school in 6 weeks. Call your doctor if your incision/area has: Continuous Slow Oozing, Sudden Increased Bleeding, Increased Pain/ Swelling, Increased Redness, Foul Smelling Discharge Call your doctor if you observe: Fever of 101 or Higher, Using more than one pad per hour - for 2 hours Suture Line Care: Avoid Pulling/Pushing, Avoid Pinching/Bending Cleanse incision/area with: Keep Dressing Clean & Dry Additional Instructions: If you experience any of the following, contact your healthcare provider. * Bleeding that soaks a pad every hour for 2 hours * Fever 100.4 or higher * Unrelieved incision or abdominal pain * Swelling, redness, discharge or bleeding from your incision or episiotomy site * Your incision begins to separate * Problems urinating (including inability to urinate or burning while urinating). * Visual changes * Severe headache * Flu-like symptoms * Pain or redness in one of both of your breasts * Pain, warmth, tenderness or swelling in your legs, especially the calf area * Frequent nausea and vomiting * Symptoms of depression or anxiety If you experience any of the following, call 911 or go to the nearest Emergency Room. * Chest pain * Problems breathing * Seizure activity * Partial or complete paralysis of a body part, slurred speech, weakness or drooping of the face, or a sudden inability to walk or hold your balance Allergies/Adverse Reactions: Allergies No Known Allergies Allergy (Verified 04/21/20 10:22) Medications to take at Discharge Pnv No.95/Ferrous Fum/Folic AC [ Caplet] 04/21/20 Naproxen 500 mg PO Q8 PRN #30 tab 04/23/20 The following prescriptions were given: Naproxen 500 mg PO Q8 PRN #30 tab PRN Reason: Pain Or Fever Transmission Status: Pending to [id number] Follow-Up: Call to make an appointment with your doctor for an incision check in 1-2 weeks. You will also need a 6 week post- follow up appointment. Test results from this visit will be discussed in further detail at your follow- up appointment, if applicable. Please Follow Up With: Sivan Valera MD - Call to make an appointment for an incision check in 1-2 [phone] When: You will need a post check in 6 weeks. Primary Care Physician: Rosalino Kessler MD [Primary Care Provider] -
--- NOTE | 2020-04-23 07:48 | PCM.DC.SUM ---
Discharge Date and Diagnosis Date of Admission: 04/21/20 Date of Discharge: 04/23/20 Hospital Course and Treatment Operations: - - Repeat low transverse section Summary of Care Provided: The patient is a 29 year old female who had a previous classical section for extreme prematurity presented for repeat section at 36-6/7 weeks gestation. This was performed without difficulty. She had no significant intraperitoneal adhesions. Her uterus was well healed and normal thickness. By postoperative day #2 she was ambulating, urinating tolerating regular diet without difficulty and was ready for discharge home. Was given routine prescriptions and instructions. [] - Physical Exam Vitals/I&O's: Vital Signs Temp Pulse Resp BP Pulse Ox 98.6 F 64 18 114/63 100 04/23/20 01:45 04/23/20 01:45 04/23/20 01:45 04/23/20 01:45 04/22/20 00:15 Oxygen Delivery Method Room Air Weight: 69.853 kg Body Mass Index (BMI) 27.3 Intake and Output for Last 24 Hours 04/21/20 04/22/20 04/23/20 23:59 23:59 23:59 Intake Total 1817.5 / 1817.5 2556.66 / 2556.66 Output Total 300 / 300 1550 / 1550 Balance 1517.5 / 1517.5 1006.66 / 1006.66 Current Medications Acetaminophen (Tylenol) 1,000 mg PO Q6H [facility] Last Admin: 04/23/20 06:38 Dose: 1,000 mg Documented by: Bisacodyl (Dulcolax) 10 mg RECTAL UD PRN PRN Reason: If no BM Hydrocortisone (Hytone) 1 applic TOPICAL TID PRN PRN; Protocol PRN Reason: Discomfort Naloxone HCl 4 mg/ Dextrose 504 mls @ 0 mls/hr IV .Q0M PRN; Protocol PRN Reason: Respiratory depression Methylergonovine Maleate (Methergine) 0.2 mg IM X1 PRN PRN Reason: Uterine Atony Naloxone HCl (Narcan) 0.02 mg IV Q1M PRN PRN Reason: RR <10 and pt unresponsive Naproxen (Naprosyn) 500 mg PO Q8 [facility] Last Admin: 04/23/20 05:03 Dose: 500 mg Documented by: Ondansetron HCl (Zofran) 4 mg IV Q4H PRN PRN PRN Reason: Nausea Last Admin: 04/21/20 17:45 Dose: 4 mg Documented by: Oxycodone HCl (Oxyir) 5 - 10 mg PO Q4H PRN PRN PRN Reason: Pain Score 4-10/10 Prochlorperazine Edisylate (Compazine Iv) 10 mg IV Q6H PRN PRN PRN Reason: NAUSEA Senna/Docusate Sodium (Senokot-S, Amina-Colace) 0 tablet PO DAILY [facility] Last Admin: 04/22/20 10:27 Dose: 1 tablet Documented by: Simethicone (Mylicon) 80 mg PO PCHS PRN PRN Reason: Indigestion/stomach pain Sodium Chloride () 5 - 15 ml IV UD PRN PRN Reason: SALINE FLUSH Last Admin: 04/22/20 13:39 Dose: 10 ml Documented by: Discharge Diet: No Restrictions Discharge Activity: Return to Normal Activity, May Not Drive - for 2 weeks, May not drive while taking narcotic pain medications., May Shower, May Take a Tub Bath - in 7 days. May resume sexual activity in: 4-6 weeks Additional Activity Instructions:: Nothing in the vagina for 4-6 weeks. You may return to work/school in 6 weeks. Call your doctor if your incision/area has: Continuous Slow Oozing, Sudden Increased Bleeding, Increased Pain/ Swelling, Increased Redness, Foul Smelling Discharge Call your doctor if you observe: Fever of 101 or Higher, Using more than one pad per hour - for 2 hours Suture Line Care: Avoid Pulling/Pushing, Avoid Pinching/Bending Cleanse incision/area with: Keep Dressing Clean & Dry Home Medications: Medications to take at Discharge Pnv No.95/Ferrous Fum/Folic AC [ Caplet] 04/21/20 Naproxen 500 mg PO Q8 PRN #30 tab 04/23/20 Following Prescrptions Were Given to Patient: Naproxen 500 mg PO Q8 PRN #30 tab PRN Reason: Pain Or Fever Transmission Status: [id number] Primary Care Physician: Rosalino Kessler MD [Primary Care Provider] - Please Follow Up With: Sivan Valera MD - Call to make an appointment for an incision check in 1-2 [phone] When: You will need a post check in 6 weeks. Medical Necessity - Tobacco Use Smoking Status: Never smoker Meaningful Use Info Meaningful Use Diagnoses (Choose all that apply): None applicable
[2020-04-23 09:00] VITALS: BP 122/69; PULSE 77; RESP 16; TEMP 36.7
[2020-04-23] MEDS: Senna/Docusate Sodium 1 Tablet PO (09:19)
== END 2020-04-23 11:15 | disposition home or self-care (01) | DRG 788 ==
PROVIDERS: Admitting Provider Obstetrics & Gynecology; PCP Family Medicine; Referring Provider Obstetrics & Gynecology; Visit Provider Obstetrics & Gynecology
PROC: 10D00Z1 Extraction of Products of Conception, Low, Open Approach (ICD-10-PCS; CPT 59514; principal; 2020-04-21 11:45)
DX: O34.212 Maternal care for vertical scar from previous cesarean delivery (principal); Z3A.36 36 weeks gestation of pregnancy; Z37.0 Single live birth
CPT/HCPCS: 85025; 85027; 86850; 86900; 86901; 99218; 99251; J7120; A4216; G0378; G0463; J2405